=== PATIENT | male | born 1995 | race Caucasian/White ===

== ENCOUNTER 2018-07-08 19:17 | Emergency (ER) | payer OTHER ==
[2018-07-08 19:26] VITALS: BP 133/67; PULSE 91
--- NOTE | 2018-07-08 19:33 | ED ---
Chest Pain HPI - General Chief Complaint: Chest Pain Stated Complaint: chest pain Time Seen by Provider: 07/08/18 19:33 Source: patient, RN notes reviewed, old records reviewed Mode of arrival: ambulatory Limitations: no limitations - History of Present Illness Initial Comments: This is a 23-year-old male the ER for evaluation chest pain. Patient is anterior chest pain, substernal type chest pain worse when he touches his chest. Patient has no history of similar complaint. Occasional drinker occasional spoke otherwise takes no medications has no medical history. No recent travel history no sick contacts. Patient states occasionally he'll he did take a deep breath but does not cause pain maybe worse. He is no significant short of breath he has no exertional dyspnea. No recent fever cough or congestion, no known sick contacts patient has no history of high blood pressure cholesterol diabetes, family does have history of heart disease but no sudden MD Complaint: chest pain -: hour(s) Onset: during rest Pain Location: substernal Pain Radiation: none Severity: mild Severity scale (1-10): 3 (Took Motrin with significant improvement) Quality: dull Consistency: constant Improves With: nitroglycerin Worsens With: nothing Context: other (None) Anginal Symptoms: other (None) Treatments Prior to Arrival: other (Motrin did help) - Related Data Home Medications Medication Instructions Recorded Confirmed Ibuprofen [Motrin Ib] 800 mg PO TID PRN 07/08/18 07/08/18 Pseudoephedrine HCl [Sudafed] 30 mg PO Q4HR PRN 07/08/18 07/08/18 Allergies Allergy/AdvReac Type Severity Reaction Status Date / Time naproxen Allergy Swelling Verified 07/08/18 19:52 Review of Systems ROS Statement: Those systems with pertinent positive or pertinent negative responses have been documented in the HPI. ROS Other: All systems not noted in ROS Statement are negative. EKG Findings - EKG Comments: EKG Findings:: EKG shows sinus rhythm rate of 77, IL 154, QRS 80, QTC 423 Past Medical History Past Medical History: No Reported History History of Any Multi-Drug Resistant Organisms: None Reported Past Surgical History: Orthopedic Surgery Past Psychological History: No Psychological Hx Reported Smoking Status: Current some day smoker Past Alcohol Use History: Rare Past Drug Use History: None Reported General Exam - General Exam Comments Initial Comments: No abdominal tenderness, mild tenderness to anterior palpation of his sternum Limitations: no limitations General appearance: alert, in no apparent distress Head exam: Present: atraumatic, normocephalic, normal inspection Eye exam: Present: normal appearance, PERRL, EOMI. Absent: scleral icterus, conjunctival injection, periorbital swelling ENT exam: Present: normal exam, mucous membranes moist Neck exam: Present: normal inspection. Absent: tenderness, meningismus, lymphadenopathy Respiratory exam: Present: normal lung sounds bilaterally. Absent: respiratory distress, wheezes, rales, rhonchi, stridor Cardiovascular Exam: Present: regular rate, normal rhythm, normal heart sounds. Absent: systolic murmur, diastolic murmur, rubs, gallop, clicks GI/Abdominal exam: Present: soft, normal bowel sounds. Absent: distended, tenderness, guarding, rebound, rigid Extremities exam: Present: normal inspection, full ROM, normal capillary refill. Absent: tenderness, pedal edema, joint swelling, calf tenderness Back exam: Present: normal inspection Neurological exam: Present: alert, oriented X3, CN II-XII intact Psychiatric exam: Present: normal affect, normal mood Skin exam: Present: warm, dry, intact, normal color. Absent: rash Course Vital Signs 07/08/18 19:23 Temperature 98.4 F Pulse Rate 91 Respiratory 16 Rate Blood Pressure 133/67 O2 Sat by Pulse 100 Oximetry - Reevaluation(s) Reevaluation #1: 07/08/18 19:45 Medical record reviewed, noncontributory Disposition Clinical Impression: Chest pain Disposition: HOME SELF-CARE Condition: Good Instructions: Chest Pain (ED) Is patient prescribed a controlled substance at d/c from ED?: No Referrals: None,Stated [Primary Care Provider] - 1-2 days
--- NOTE | 2018-07-08 20:13 | XR ---
EXAMINATION TYPE: XR chest 2V DATE OF EXAM: 07/08/2018 COMPARISON: 09/12/2011 HISTORY: Chest pain TECHNIQUE: Frontal and lateral views of the chest are obtained. FINDINGS: Heart and mediastinum are normal. Lungs are clear. Diaphragm is normal. Bony thorax appear s normal. IMPRESSION: Normal chest. No change.
[2018-07-08 20:49] VITALS: RESP 16; TEMP 97.9
== END 2018-07-08 20:30 | disposition home or self-care (01) ==
LOC: EC 19:17
DX: R07.2 Precordial pain (principal); F17.200 Nicotine dependence, unspecified, uncomplicated; Z88.6 Allergy status to analgesic agent
CPT/HCPCS: 71046; 99285

== ENCOUNTER 2019-01-02 21:59 | Emergency (ER) | payer OTHER ==
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
--- NOTE | 2019-01-02 23:17 | XR ---
EXAM: XR Lumbar Spine, 2 or 3 Views CLINICAL HISTORY: Pain TECHNIQUE: Frontal and lateral views of the lumbar spine. COMPARISON: No relevant prior studies available. FINDINGS: Vertebrae: Unremarkable. No acute fracture. Normal alignment. Disc spaces: No acute findings. No significant narrowing. Soft tissues: Unremarkable. IMPRESSION: Normal lumbar spine x-rays.
--- NOTE | 2019-01-02 23:18 | XR ---
EXAM: XR Pelvis, 1 or 2 Views CLINICAL HISTORY: Pain TECHNIQUE: Frontal view of the pelvis. COMPARISON: No relevant prior studies available. FINDINGS: Bones/joints: Unremarkable. No acute fracture. No dislocation. Soft tissues: Unremarkable. IMPRESSION: Normal pelvis x-ray.
[2019-01-03 00:04] VITALS: BP 140/88; PULSE 78; RESP 12; TEMP 97.7
== END 2019-01-02 23:58 | disposition home or self-care (01) ==
LOC: EC 21:59
DX: S39.012A Strain of muscle, fascia and tendon of lower back, initial encounter (principal); F17.200 Nicotine dependence, unspecified, uncomplicated; Z88.6 Allergy status to analgesic agent; V89.2XXA Person injured in unspecified motor-vehicle accident, traffic, initial encounter; Y92.410 Unspecified street and highway as the place of occurrence of the external cause
CPT/HCPCS: 72100; 72170; 99284

== ENCOUNTER → 2020-09-16 | Outpatient (CLI) | payer OTHER ==
--- NOTE | 2020-09-16 18:46 | CT ---
EXAMINATION TYPE: CT abdomen pelvis w con DATE OF EXAM: 09/16/2020 COMPARISON: 05/22/2010 HISTORY: RLQ pain CT DLP: 1591 mGycm Automated exposure control for dose reduction was used. CONTRAST: Performed with IV Contrast, patient injected with 100 mL of Isovue 300. Images obtained from the diaphragm to the floor the pelvis with oral and IV contrast. Lung bases are clear. There is no pleural effusion. Heart size is normal. There is no pericardial eff usion. Liver spleen stomach pancreas gallbladder appear normal. Bile ducts are not dilated. There is no adrenal mass. The kidneys show satisfactory contrast opacification. There is no hydroneph rosis. Delayed images show normal renal excretion. Ureters are not dilated. There is no retroperitone al adenopathy. Appendix appears normal. Bladder distends smoothly. There is no inguinal hernia. There is no free fluid in the pelvis. There is no evidence of pelvic mass. There is no mesenteric edema. There is no ascites or free air. There is no sign of a bowel obstructio n. There is 1 cm umbilical hernia that contains fat. Small bowel pattern is normal. I see no intestin al wall thickening. Lumbar vertebra have normal alignment. There is no compression fracture. Bony pelvis is intact. Hip j oints are intact. IMPRESSION: Negative CT scan abdomen and pelvis. Normal appendix. There is clearing of the tiny amount of fluid i n the pelvis compared to old exam.
== END | disposition home or self-care (01) ==
LOC: RADCTMAIN 15:34
PROVIDERS: ATTEND Nurse Practitioner Family
DX: R10.31 Right lower quadrant pain (principal)
CPT/HCPCS: 74177; Q9967

== ENCOUNTER 2020-10-10 20:25 | Emergency (ER) | payer OTHER ==
[2020-10-10 20:30] VITALS: TEMP 98.4
[2020-10-10] MEDS ORDERED: SODIUM CHLORIDE 0.9% 1,000 ML IV STA (21:07)
--- NOTE | 2020-10-10 21:16 | ED ---
Abdominal Pain HPI - General Chief Complaint: Abdominal Pain Stated Complaint: Abd Pain Time Seen by Provider: 10/10/20 20:34 Source: patient, RN notes reviewed Mode of arrival: ambulatory Limitations: no limitations - History of Present Illness Initial Comments: 25-year-old male patient presents to the emergency room complaints of approximately one month of abdominal pain. Patient states was seen here and diagnosed on September 16 with a small umbilical hernia. Patient states he went to [facility] in [place] and developed worsening pain, had another CAT scan there was told he had an abdominal strain on October 02. Patient states he has a appointment with on October 20 for follow-up but states the pain is worse and not relieved with Tylenol. Patient denies any nausea vomiting or diarrhea, denies any fevers, denies any chest pain or cough.. States he just started seeing Dr. Julien and was prescribed sertraline for anxiety, depression September 17. Patient states does not want a third CAT scan to show the same thing he just needs something for the pain. Patient states pain 10 out of 10, worse with movement. MD Complaint: abdominal pain -: month(s) Location: periumbilical, RUQ, RLQ Radiation: none Severity scale (1-10): 10 Improves With: nothing Worsens With: movement Context: other (dx with small umbilical hernia 09/16, abdominal strain 10/02) Associated Symptoms: denies other symptoms - Related Data Home Medications Medication Instructions Recorded Confirmed No Known Home Medications 01/02/19 01/02/19 Allergies Allergy/AdvReac Type Severity Reaction Status Date / Time naproxen Allergy Swelling Verified 10/10/20 20:31 NSAIDS (Non-Steroidal AdvReac Unknown Verified 10/10/20 20:31 Anti-Inflamma Review of Systems ROS Statement: Those systems with pertinent positive or pertinent negative responses have been documented in the HPI. ROS Other: All systems not noted in ROS Statement are negative. Past Medical History Past Medical History: No Reported History History of Any Multi-Drug Resistant Organisms: None Reported Past Surgical History: Orthopedic Surgery Past Psychological History: No Psychological Hx Reported Smoking Status: Current every day smoker Past Alcohol Use History: Rare Past Drug Use History: None Reported General Exam Limitations: no limitations General appearance: alert, in no apparent distress Head exam: Present: atraumatic, normocephalic, normal inspection Eye exam: Present: normal appearance, PERRL, EOMI. Absent: scleral icterus, conjunctival injection, periorbital swelling ENT exam: Present: normal exam, mucous membranes moist Neck exam: Present: normal inspection, full ROM. Absent: tenderness, meningismus, lymphadenopathy, thyromegaly Respiratory exam: Present: normal lung sounds bilaterally. Absent: respiratory distress, wheezes, rales, rhonchi, stridor, chest wall tenderness, accessory muscle use, decreased breath sounds Cardiovascular Exam: Present: tachycardia, normal heart sounds. Absent: JVD GI/Abdominal exam: Present: soft, tenderness (RUQ, RLQ and periumbilical). A bsent: distended Extremities exam: Present: normal inspection, full ROM, normal capillary refill. Absent: tenderness, pedal edema, joint swelling, calf tenderness Back exam: Present: normal inspection, full ROM. Absent: tenderness, CVA tenderness (R), CVA tenderness (L) Neurological exam: Present: alert, oriented X3 Psychiatric exam: Present: anxious Skin exam: Present: warm, dry, intact, normal color. Absent: rash, cyanosis, diaphoretic, erythema, petechiae, pallor, mottled Course Vital Signs 10/10/20 10/10/20 20:28 21:12 Temperature 98.4 F Pulse Rate 108 H 80 Respiratory 20 18 Rate Blood Pressure 155/98 160/98 O2 Sat by Pulse 97 98 Oximetry Medical Decision Making - Medical Decision Making CBC WNL, WBC count 5.5, compared to WBC of 4.2 on 09/16. CRP 0.9. Patient afebrile with temperature of 98.4, heart rate 75, oxygen saturation 97%. Patient did not want another CT scan in the ER today. Patient willing to be discharged home and follow up with surgery as already scheduled October 20. States she will take Tylenol at home but is requesting a couple of days off from work to rest. Patient well-appearing will discharge home. Case discussed with Dr. Cruz who was agreeable to this plan. Patient directed to return if worsening pain or fevers. - Lab Data Result diagrams: 10/10/20 21:12 10/10/20 21:12 Lab Results 10/10/20 10/10/20 10/10/20 Range/Units 21:12 21:12 21:12 WBC 5.5 (3.8-10.6) k/uL RBC 5.06 (4.30-5.90) m/uL Hgb 16.0 (13.0-17.5) gm/dL Hct 45.8 (39.0-53.0) % MCV 90.6 (80.0-100.0) fL MCH 31.6 (25.0-35.0) pg MCHC 34.9 (31.0-37.0) g/dL RDW 13.4 (11.5-15.5) % Plt Count 174 (150-450) k/uL MPV 8.6 Neutrophils % 58 % Lymphocytes % 29 % Monocytes % 8 % Eosinophils % 4 % Basophils % 1 % Neutrophils # 3.2 (1.3-7.7) k/uL Lymphocytes # 1.6 (1.0-4.8) k/uL Monocytes # 0.4 (0-1.0) k/uL Eosinophils # 0.2 (0-0.7) k/uL Basophils # 0.0 (0-0.2) k/uL Sodium 138 (137-145) mmol/L Potassium 4.0 (3.5-5.1) mmol/L Chloride 104 (98-107) mmol/L Carbon Dioxide 25 (22-30) mmol/L Anion Gap 9 mmol/L BUN 16 (9-20) mg/dL Creatinine 1.00 (0.66-1.25) mg/dL Est GFR (CKD-EPI)AfAm >90 (>60 ml/min/1.73 sqM) Est GFR (CKD-EPI)NonAf >90 (>60 ml/min/1.73 sqM) Glucose 107 H (74-99) mg/dL Calcium 9.8 (8.4-10.2) mg/dL Total Bilirubin 0.6 (0.2-1.3) mg/dL AST 31 (17-59) U/L ALT 50 H (4-49) U/L Alkaline Phosphatase 92 (38-126) U/L C-Reactive Protein 0.9 (<1.0) mg/dL Total Protein 7.0 (6.3-8.2) g/dL Albumin 4.5 (3.5-5.0) g/dL Amylase 72 (30-110) U/L Lipase 246 (23-300) U/L Urine Color Yellow Urine Appearance Clear (Clear) Urine pH 6.0 (5.0-8.0) Ur Specific [place] 1.034 (1.001-1.035) Urine Protein Trace H (Negative) Urine Glucose (UA) Negative (Negative) Urine Ketones Negative (Negative) Urine Blood Negative (Negative) Urine Nitrite Negative (Negative) Urine Bilirubin Negative (Negative) Urine Urobilinogen 2.0 (<2.0) mg/dL Ur Leukocyte Esterase Negative (Negative) Disposition Clinical Impression: Abdominal pain, Abdominal muscle strain Disposition: HOME SELF-CARE Condition: Good Instructions (If sedation given, give patient instructions): Abdominal Pain (ED), Muscle Strain (ED) Is patient prescribed a controlled substance at d/c from ED?: No Referrals: Jeramie Julien MD [Primary Care Provider] - 1-2 days Time of Disposition: 22:06
[2020-10-10] MEDS ORDERED: ACETAMINOPHEN TAB 325 MG TAB PO STA (21:17)
[2020-10-10 21:18] VITALS: RESP 18
[2020-10-10 21:23] LABS: Basophils % (A) 1 %; Eosinophils # (A) 0.2 k/uL (0-0.7); Eosinophils % (A) 4 %; HCT 45.8 % (39.0-53.0); Lymphocytes # (A) 1.6 k/uL (1.0-4.8); Lymphocytes % (A) 29 %; MCH 31.6 pg (25.0-35.0); MCHC 34.9 g/dL (31.0-37.0); MCV 90.6 fL (80.0-100.0); Mean Platelet Volume 8.6; Monocytes # (A) 0.4 k/uL (0-1.0); Monocytes % (A) 8 %; Neutrophils # (A) 3.2 k/uL (1.3-7.7); Neutrophils % (A) 58 %; Platelet Count 174 k/uL (150-450); RBC 5.06 m/uL (4.30-5.90); RDW 13.4 % (11.5-15.5); WBC 5.5 k/uL (3.8-10.6)
[2020-10-10 21:24] LABS: Appearance,Urine Clear (Clear); Bilirubin,Urine Negative (Negative); Blood,Urine Negative (Negative); Color,Urine Yellow; Glucose,Urine (UA) Negative (Negative); Ketones,Urine Negative (Negative); Leukocyte Esterase,Urine Negative (Negative); Nitrite,Urine Negative (Negative); Protein,Urine Trace (Negative); Specific Gravity,Urine 1.034 (1.001-1.035)
[2020-10-10 21:50] LABS: ALT 50 U/L (4-49); AST 31 U/L (17-59); African American GFR (CKD) >90 (>60 ml/min/1.73 sqM); Albumin 4.5 g/dL (3.5-5.0); Alkaline Phosphatase 92 U/L (38-126); Amylase 72 U/L (30-110); Anion Gap 9 mmol/L; Blood Urea Nitrogen 16 mg/dL (9-20); C Reactive Protein 0.9 mg/dL (<1.0); Calcium 9.8 mg/dL (8.4-10.2); Carbon Dioxide 25 mmol/L (22-30); Chloride 104 mmol/L (98-107); Glucose 107 mg/dL (74-99); Lipase 246 U/L (23-300); Non-African American GFR(CKD) >90 (>60 ml/min/1.73 sqM); Sodium 138 mmol/L (137-145); Total Bilirubin 0.6 mg/dL (0.2-1.3)
[2020-10-10 22:05] VITALS: BP 142/85; PULSE 75
== END 2020-10-10 22:14 | disposition home or self-care (01) ==
LOC: EC 20:25
DX: S39.011A Strain of muscle, fascia and tendon of abdomen, initial encounter (principal); F17.200 Nicotine dependence, unspecified, uncomplicated; X58.XXXA Exposure to other specified factors, initial encounter
CPT/HCPCS: 36415; 80053; 81003; 82150; 83690; 85025; 86140; 96360; 99284

== ENCOUNTER 2020-11-03 06:55 | Observation (INO) | payer OTHER ==
[2020-11-02 10:04] VITALS: BMI 31.7
[~2020-11-03 06:55] MED LIST: ACETAMINOPHEN TAB 500 MG TAB PO PRN; DEXAMETHASONE SOD PHOSPHATE 4 MG/ML 1 ML VIAL IV ONE; HEPARIN SODIUM,PORCINE/PF 5,000 UNIT/0.5 ML SYRINGE SQ PRN
[2020-11-03] MEDS ORDERED: ONDANSETRON 4 MG/2 ML VIAL IVP PRN ×2 (07:00→14:37)
[2020-11-03] MEDS: LACTATED RINGERS 1,000 ML IV SCH ×2 (07:37→20:38)
[2020-11-03] MEDS ORDERED: MIDAZOLAM 2 MG/2 ML VIAL IVP ONE ×5 (08:01→08:50)
--- NOTE | 2020-11-03 08:55 | P.GSHP ---
History of Present Illness H&P Date: 11/03/20 Chief Complaint: Umbilical hernia This a 25-year-old male who presents today for laparoscopic robotic system repair of umbilical hernia. Past Medical History Past Medical History: No Reported History Additional Past Medical History / Comment(s): abdominal hernia History of Any Multi-Drug Resistant Organisms: None Reported Past Surgical History: Orthopedic Surgery Additional Past Surgical History / Comment(s): ORIF left foot-hardware later removed Additional Past Anesthesia/Blood Transfusion Reaction / Comment(s): woke up in the middle of the foot surgery, no hx blood transfusion Smoking Status: Vaper - Past Family History Mother Family Medical History: No Reported History Medications and Allergies Home Medications Medication Instructions Recorded Confirmed Type Ibuprofen [Ibuprofen Jr. Strength] 150 mg PO Q6H PRN 11/02/20 11/02/20 History Sertraline [Zoloft] 100 mg PO QAM 11/02/20 11/03/20 History Allergies Allergy/AdvReac Type Severity Reaction Status Date / Time naproxen Allergy generalized Verified 11/03/20 07:28 Swelling "up like a ballon" Surgical - Exam Vital Signs Temp Pulse Resp BP Pulse Ox 97.8 F 74 17 146/87 96 11/03/20 07:30 11/03/20 07:30 11/03/20 07:30 11/03/20 07:30 11/03/20 07:30 - General well developed, well nourished, no distress - Eyes PERRL - ENT normal pinna - Neck no masses - Respiratory normal expansion - Cardiovascular Rhythm: regular - Abdomen Abdomen: soft, non tender Hernia: umbilical Assessment and Plan Assessment: Umbilical hernia. We'll perform laparoscopic robotic-assisted repair.
[2020-11-03] MEDS ORDERED: SUCCINYLCHOLINE CHLORIDE 100 MG/5 ML SYR IV ONE (09:06)
[2020-11-03] MEDS ORDERED: GLYCOPYRROLATE 0.2 MG/ML 2 ML VIAL ONE (09:06)
[2020-11-03] MEDS ORDERED: KETOROLAC 15 MG/ML 1 ML VIAL ONE (09:06)
[2020-11-03] MEDS ORDERED: HYDROmorphone (PF) 1 MG/ML ONE (09:06)
[2020-11-03] MEDS ORDERED: NEOSTIGMINE 1 MG/ML 10 ML VIAL ONE (09:06)
[2020-11-03] MEDS ORDERED: ROPIVACAINE 5 MG/ML 30 ML VIAL ONE (09:06)
[2020-11-03] MEDS ORDERED: LIDOCAINE 1% INJ 10MG/ML (20 ML MDV) ONE (09:06)
[2020-11-03] MEDS ORDERED: fentaNYL (PF) 50 MCG/ML 2 ML AMP ONE (09:06)
[2020-11-03] MEDS ORDERED: MIDAZOLAM 2 MG/2 ML VIAL ONE (09:06)
[2020-11-03] MEDS ORDERED: ROCURONIUM 10 MG/ML (5 ML VIAL) IV ONE (09:06)
[2020-11-03] MEDS ORDERED: PROPOFOL 10 MG/ML 20 ML VIAL IV ONE (09:06)
[2020-11-03] MEDS ORDERED: LIDOCAINE 1%-EPI 1:100,000 20 ML VIAL ONE (09:06)
[2020-11-03] MEDS ORDERED: BUPIVACAIN-EPI 0.5%-1:200,000 30 ML VIAL SQ ONE (09:24)
[2020-11-03] MEDS ORDERED: LACTATED RINGERS 1,000 ML IV ONE ×2 (10:08→13:59)
[2020-11-03] MEDS: HYDROmorphone 0.5 MG/0.5 ML SYRINGE IVP PRN ×4 (10:16→10:33)
--- NOTE | 2020-11-03 10:26 | P.OP ---
Date of Procedure: 11/03/20 Preoperative Diagnosis: Incarcerated umbilical hernia Postoperative Diagnosis: Incarcerated umbilical hernia Procedure(s) Performed: Laparoscopic robotic-assisted repair of incarcerated umbilical hernia Partial omentectomy Anesthesia: MARY KAY Surgeon: Humberto Castro Estimated Blood Loss (ml): 5 Pathology: other (Omentum) Condition: stable Disposition: PACU Description of Procedure: The patient was placed on the operating table in the supine position. He received general anesthesia. His abdomen was prepped and draped usual fashion. Using a 5 mm optical trocar under direct visualization the peritoneal cavity was entered in the left upper quadrant. The abdomen was then insufflated. The laparoscope was placed back into the perineal cavity. Next a 8 mm robotic trocar was placed in the left lower quadrant and a 12 mm robotic trocar was placed in the left lateral position. The original 5 mm trocar was exchanged for a 8 mm robotic trocar. The patient's placed in the left side up position. And the patient was undocked the robot. The umbilical hernia was visualized. Using hook cautery the peritoneum over the umbilical hernia was excised. The incarcerated omentum was dissected free and sent to pathology The fascial opening was repaired using 0V LOC suture. Next a piece of 11 cm round ventral light ST mesh was placed into the. Cavity and secured with 2 OV lock suture. The patient was undocked the robot. The needles were retrieved. The fascia of the 12 mm trocar site was closed with 0 Ethibond suture. Skin was closed interrupted 3-0 Monocryl suture. Dermabond dressings was applied. Patient top procedure well and was sent to recovery room stable condition.
[2020-11-03] MEDS ORDERED: fentaNYL (PF) 50 MCG/ML 2 ML AMP IV ONE (10:38)
[2020-11-03] MEDS ORDERED: MIDAZOLAM 2 MG/2 ML VIAL IV ONE (11:52)
[2020-11-03] MEDS ORDERED: MEPERIDINE 50 MG/ML SYRINGE IVP ONE ×2 (12:56→13:58)
[2020-11-03] MEDS: SERTRALINE 100 MG TAB PO SCH (15:06)
[2020-11-03] MEDS ORDERED: SODIUM CHLORIDE 0.9% 1,000 ML IV ONE (15:22)
[2020-11-03] MEDS ORDERED: HYDROmorphone 1 MG/ML 1 ML SYRINGE IVP ONE (15:50)
[2020-11-03] MEDS: PANTOPRAZOLE 40 MG TABLET PO SCH (17:08)
[2020-11-03] MEDS: HYDROcodone/APAP 5-325MG 1 EACH TAB PO PRN ×2 (17:13→21:32)
[2020-11-03] MEDS: SODIUM CHLORIDE 0.9% 1,000 ML IV SCH (17:13)
[2020-11-03] MEDS: HYDROmorphone 1 MG/ML 1 ML SYRINGE IVP PRN ×2 (19:50→23:10)
[2020-11-03] MEDS: HEPARIN SODIUM,PORCINE/PF 5,000 UNIT/0.5 ML SYRINGE SQ SCH (21:32)
[2020-11-04] MEDS: SODIUM CHLORIDE 0.9% 1,000 ML IV SCH ×2 (01:36→09:23)
[2020-11-04] MEDS: HYDROcodone/APAP 5-325MG 1 EACH TAB PO PRN ×2 (01:38→06:13)
[2020-11-04] MEDS: HYDROmorphone 1 MG/ML 1 ML SYRINGE IVP PRN ×4 (02:02→23:15)
[2020-11-04] MEDS: HEPARIN SODIUM,PORCINE/PF 5,000 UNIT/0.5 ML SYRINGE SQ SCH ×2 (08:30→20:45)
[2020-11-04] MEDS: PANTOPRAZOLE 40 MG TABLET PO SCH (08:30)
[2020-11-04] MEDS: SERTRALINE 100 MG TAB PO SCH (08:47)
[2020-11-04 09:06] LABS: African American GFR (CKD) >90 (>60 ml/min/1.73 sqM); Anion Gap 5 mmol/L; Blood Urea Nitrogen 9 mg/dL (9-20); Calcium 8.7 mg/dL (8.4-10.2); Carbon Dioxide 28 mmol/L (22-30); Chloride 105 mmol/L (98-107); Glucose 129 mg/dL (74-99); Non-African American GFR(CKD) >90 (>60 ml/min/1.73 sqM); Potassium 4.2 mmol/L (3.5-5.1); Sodium 138 mmol/L (137-145)
[2020-11-04 09:36] LABS: Basophils % (A) 0 %; Eosinophils % (A) 0 %; HCT 38.5 % (39.0-53.0); HGB 13.7 gm/dL (13.0-17.5); Lymphocytes # (A) 1.5 k/uL (1.0-4.8); Lymphocytes % (A) 18 %; MCH 32.6 pg (25.0-35.0); MCHC 35.6 g/dL (31.0-37.0); MCV 91.5 fL (80.0-100.0); Mean Platelet Volume 9.4; Monocytes # (A) 0.3 k/uL (0-1.0); Monocytes % (A) 4 %; Neutrophils # (A) 6.1 k/uL (1.3-7.7); Neutrophils % (A) 77 %; Platelet Count 129 k/uL (150-450); RDW 13.2 % (11.5-15.5)
[2020-11-04] MEDS ORDERED: IBUPROFEN 600 MG TAB PO PRN (11:16)
--- NOTE | 2020-11-04 14:00 | P.ANPRN ---
Procedure Note - Anesthesia - Nerve Block Performed Bilateral Rectus Abdominis Single Time Out Performed: Yes Date of Procedure: 11/03/20 Procedure Start Time: 08:00 Procedure Stop Time: 08:06 Location of Patient: PreOp Indication: Acute Post-Operative Pain, Requested by Surgeon Sedation Type: Sedate with meaningful contact maintained Preparation: Sterile Prep Position: Supine Needle Types: Pajunk Needle Gauge: 21 Ultrasound used to visualize needle placement: Yes Ultrasound used to observe medication spread: Yes Blood Aspirated: No Pain Paresthesia on Injection Noted: No Resistance on Injection: Normal Image Stored and Saved: Yes Events: Uneventful and Well Tolerated (Ropivacaine 0.5% 20 mL with dexamethasone 4 mg bilaterally)
--- NOTE | 2020-11-04 15:08 | P.PN ---
Subjective Progress Note Date: 11/04/20 CHIEF COMPLAINT: Incarcerated umbilical hernia HISTORY OF PRESENT ILLNESS: Patient is status post laparoscopic robotic-assisted repair of incarcerated umbilical hernia and partial omentectomy. Patient is postop day #1. He is having uncontrolled abdominal pain. Patient has not been able to pass gas. He has been up and ambulating. He is still requiring the IV Dilaudid. Oral pain medications have also been added. He denies any nausea or vomiting. He is on a regular diet. Afebrile. WBC is 8.0 PHYSICAL EXAM: VITAL SIGNS: Reviewed. GENERAL: Well-developed in no acute distress. HEENT: No sclera icterus. Extraocular movements grossly intact. Moist buccal mucosa. Head is atraumatic, normocephalic. ABDOMEN: Soft. Nondistended. Diffuse tenderness. Incisions clean dry and intact NEUROLOGIC: Alert and oriented. Cranial nerves II through XII grossly intact. ASSESSMENT: 1. Incarcerated umbilical hernia status post laparoscopic robotic-assisted repair of incarcerated umbilical hernia and partial omentectomy PLAN: -OxyIR, Motrin and Tylenol added for pain control -Continue IV Dilaudid as needed for breakthrough pain -Hep-Lock IV -Continue regular diet -Encourage patient to ambulate -GI prophylaxis Protonix and DVT prophylaxis subcu heparin Physician Data Technical Lead note has been reviewed by physician. Signing provider agrees with the documented findings, assessment, and plan of care. Objective - Vital Signs Vital signs: Vital Signs Temp 97.8 F 11/04/20 12:34 Pulse 66 11/04/20 12:34 Resp 16 11/04/20 12:34 BP 115/65 11/04/20 12:34 Pulse Ox 98 11/04/20 12:34 Intake & Output 11/03/20 11/04/20 11/04/20 18:59 06:59 18:59 Intake Total 2600 2640 Output Total 505 Balance 2095 2640 Weight 106 kg Intake: IV 2400 Intake, IV Titration 200 1200 Amount Sodium Chloride 0.9% 1, 200 1200 000 ml @ 100 mls/hr IV . Q10H OFELIA Rx#:[id number] Oral 1440 Output: Urine 500 Estimated Blood Loss 5 Other: Voiding Method Toilet Toilet # Voids 1 3 - Labs CBC & Chem 7: 11/04/20 08:40 11/04/20 08:40 Labs: Abnormal Lab Results - Last 24 Hours (Table) 11/04/20 11/04/20 Range/Units 08:40 08:40 RBC 4.20 L (4.30-5.90) m/uL Hct 38.5 L (39.0-53.0) % Plt Count 129 L (150-450) k/uL Glucose 129 H (74-99) mg/dL
[2020-11-04] MEDS: LACTATED RINGERS 1,000 ML IV SCH (20:45)
[2020-11-05] MEDS: ACETAMINOPHEN TAB 325 MG TAB PO PRN ×2 (00:23→14:36)
[2020-11-05] MEDS: HYDROmorphone 1 MG/ML 1 ML SYRINGE IVP PRN ×3 (01:59→09:08)
[2020-11-05] MEDS: PANTOPRAZOLE 40 MG TABLET PO SCH (07:33)
[2020-11-05] MEDS: SERTRALINE 100 MG TAB PO SCH (07:33)
[2020-11-05] MEDS: HEPARIN SODIUM,PORCINE/PF 5,000 UNIT/0.5 ML SYRINGE SQ SCH (07:34)
[2020-11-05] MEDS ORDERED: DOCUSATE 100 MG CAP PO SCH (10:15)
[2020-11-05] MEDS ORDERED: SERTRALINE 100 MG TAB PO SCH (10:45)
[2020-11-05] MEDS ORDERED: HYDROcodone/APAP 7.5-325MG 1 EACH TAB PO PRN (11:38)
[2020-11-05 11:58] VITALS: BP 125/73; PULSE 78; RESP 14; TEMP 98
--- NOTE | 2020-11-05 14:16 | P.DS ---
Providers Date of admission: 11/03/20 23:31 Expected date of discharge: 11/05/20 Attending physician: Humberto Castro Primary care physician: Jeramie Julien Hospital Course: Discharge diagnosis 1. Incarcerated umbilical hernia status post laparoscopic robotic-assisted repair of incarcerated umbilical hernia and partial omentectomy Hospital course This is a 25-year-old male with an incarcerated umbilical hernia. He is status post laparoscopic robotic-assisted repair of incarcerated umbilical hernia and partial omentectomy. Patient's pain is better controlled today. He is now passing gas. And feels ready for discharge. He has been up and ambulating. He is tolerating diet. He is afebrile. He is stable for discharge. Please refer to chart for any further details. Physician Electrode Cleaner note has been reviewed by physician. Signing provider agrees with the documented findings, assessment, and plan of care. Patient Condition at Discharge: Stable Plan - Discharge Summary Discharge Rx Participant: No New Discharge Prescriptions: New Ibuprofen [Motrin] 600 mg PO Q6HR PRN #40 tab PRN Reason: Pain Acetaminophen Tab [Tylenol] 650 mg PO Q6H #30 tab Docusate [Colace] 100 mg PO BID #20 capsule oxyCODONE HCL [OxyIR] 5 mg PO Q6H PRN 3 Days #10 tab PRN Reason: Pain Continue Sertraline [Zoloft] 100 mg PO QAM Discontinued Ibuprofen [Ibuprofen Jr. Strength] 150 mg PO Q6H PRN PRN Reason: Pain Discharge Medication List Sertraline [Zoloft] 100 mg PO QAM 11/02/20 [History] Acetaminophen Tab [Tylenol] 650 mg PO Q6H #30 tab 11/03/20 [Rx] Docusate [Colace] 100 mg PO BID #20 capsule 11/03/20 [Rx] Ibuprofen [Motrin] 600 mg PO Q6HR PRN #40 tab 11/03/20 [Rx] oxyCODONE HCL [OxyIR] 5 mg PO Q6H PRN 3 Days #10 tab 11/03/20 [Rx] Follow up Appointment(s)/Referral(s): Humberto Castro MD [STAFF PHYSICIAN] - 11/10/20 4:00 pm Patient Instructions/Handouts: *Surgery [facility] - (Anesthesia) Discharge Instructions Outpatient Surgery, Laparoscopic Herniorrhaphy (DC) Activity/Diet/Wound Care/Special Instructions: KEEP BINDER ON ALL TIMES EXCEPT SHOWERING. OK TO shower NO TUB BATH,POOL UNTIL HEALED. NO HEAVY LIFTING leave tape strip alone Discharge Disposition: HOME SELF-CARE
--- NOTE | 2020-11-05 14:40 | P.CONS ---
History of Present Illness - Reason for Consult Perioperative complication management - History of Present Illness 25-year-old male was admitted for repair of incarcerated a medical hernia and partial omentectomy. Pacer patient is postoperative day 1 the patient's abdomen is distended just started passing gas and patient probably received quite a bit of opiates because of which patient is a bit constipated leading to abdominal pain and holding off on opiates for now patient is being started on nonsteroidal anti-inflammatory medications. He pain is better controlled probably can be discharged later today. Review of Systems REVIEW OF SYSTEMS: CONSTITUTIONAL: No fever, no malaise, no fatigue. HEENT: No recent visual problems or hearing problems. Denied any sore throat. CARDIOVASCULAR: No chest pain, orthopnea, PND, no palpitations, no syncope. PULMONARY: No shortness of breath, no cough, no hemoptysis. GASTROINTESTINAL: Abdominal pain as mentioned above NEUROLOGICAL: No headaches, no weakness, no numbness. HEMATOLOGICAL: Denies any bleeding or petechiae. GENITOURINARY: Denies any burning micturition, frequency, or urgency. MUSCULOSKELETAL/RHEUMATOLOGICAL: Denies any joint pain, swelling, or any muscle pain. ENDOCRINE: Denies any polyuria or polydipsia. The rest of the 14-point review of systems is negative. Past Medical History Past Medical History: No Reported History Additional Past Medical History / Comment(s): abdominal hernia History of Any Multi-Drug Resistant Organisms: None Reported Past Surgical History: Orthopedic Surgery Additional Past Surgical History / Comment(s): ORIF left foot-hardware later removed Additional Past Anesthesia/Blood Transfusion Reaction / Comm: woke up in the middle of the foot surgery, no hx blood transfusion Smoking Status: Vaper - Past Family History Mother Family Medical History: No Reported History Medications and Allergies Home Medications Medication Instructions Recorded Confirmed Type Sertraline [Zoloft] 100 mg PO QAM 11/02/20 11/03/20 History Acetaminophen Tab [Tylenol] 650 mg PO Q6H #30 tab 11/03/20 Rx Docusate [Colace] 100 mg PO BID #20 capsule 11/03/20 Rx Ibuprofen [Motrin] 600 mg PO Q6HR PRN #40 tab 11/03/20 Rx oxyCODONE HCL [OxyIR] 5 mg PO Q6H PRN 3 Days #10 tab 11/03/20 Rx Allergies Allergy/AdvReac Type Severity Reaction Status Date / Time naproxen Allergy generalized Verified 11/03/20 07:28 Swelling "up like a ballon" Physical Exam Vitals: Vital Signs Temp Pulse Resp BP Pulse Ox 11/05/20 11:39 98.0 F 78 14 125/73 99 11/05/20 04:27 97.9 F 68 16 123/81 99 11/04/20 20:20 98.0 F 67 16 104/65 99 Intake and Output 11/04/20 11/05/20 11/05/20 22:59 06:59 14:59 Intake Total 1280 960 Output Total 1800 Balance 1280 -840 Intake: Intake, IV Titration 800 Amount Sodium Chloride 0.9% 1, 800 000 ml @ 100 mls/hr IV . Q10H OFELIA Rx#:[id number] Oral 480 960 Output: Urine 1800 Other: Voiding Method Toilet # Voids 1 PHYSICAL EXAMINATION: GENERAL: The patient is alert and oriented x3, not in any acute distress. Well developed, well nourished. HEENT: Pupils are round and equally reacting to light. EOMI. No scleral icterus. No conjunctival pallor. Normocephalic, atraumatic. No pharyngeal erythema. No thyromegaly. CARDIOVASCULAR: S1 and S2 present. No murmurs, rubs, or gallops. PULMONARY: Chest is clear to auscultation, no wheezing or crackles. ABDOMEN: Distended and tympanic normoactive bowel sounds. No palpable organom egaly. MUSCULOSKELETAL: No joint swelling or deformity. EXTREMITIES: No cyanosis, clubbing, or pedal edema. NEUROLOGICAL: Gross neurological examination did not reveal any focal deficits. SKIN: No rashes. Results CBC & Chem 7: 11/04/20 08:40 11/04/20 08:40 Assessment and Plan Plan: -Incarcerated him little hernia status post laparoscopic surgery off on medical hernia with partial omentectomy: Surgical site areas are clean no evidence of infection at this time -Pain management: Patient abdominal distention is secondary to opiates which will be held temporarily and will be started on nonsteroidal anti-inflammatory recent patient does well patient probably can be discharged later today and the patient is being resumed on the right as well. -Based he -History of anxiety disorder/PTSD
== END 2020-11-05 15:20 | disposition home or self-care (01) ==
LOC: OR 06:55 → 5NMEDONC 15:01 → OR 23:31
PROVIDERS: ADMIT Surgery; ATTEND Surgery
DX: K42.0 Umbilical hernia with obstruction, without gangrene (principal); F32.9 Major depressive disorder, single episode, unspecified; K59.00 Constipation, unspecified; R14.0 Abdominal distension (gaseous); T40.2X5A Adverse effect of other opioids, initial encounter; F17.210 Nicotine dependence, cigarettes, uncomplicated; Z20.822 Contact with and (suspected) exposure to COVID-19; Z98.890 Other specified postprocedural states; Z79.899 Other long term (current) drug therapy; Z88.6 Allergy status to analgesic agent
CPT/HCPCS: 49653; S2900; 64999; 80048; 85025; 87635; 88302; 88305

== ENCOUNTER → 2021-01-27 | Outpatient (CLI) | payer OTHER ==
--- NOTE | 2021-01-27 16:15 | CT ---
EXAMINATION TYPE: CT abdomen pelvis w con DATE OF EXAM: 01/27/2021 COMPARISON: CT 09/16/2020 HISTORY: abdominal pain post hernia repair CT DLP: 1595.1 mGycm Automated exposure control for dose reduction was used. TECHNIQUE: Helical acquisition of images from the lung bases through the pelvis have been completed. CONTRAST: Performed with Oral Contrast and with IV Contrast, patient injected with 100 mL of Isovue 300. FINDINGS: There is no evident groin adenopathy or abnormal fluid collection, no evident recurrent her alana. LUNG BASES: No significant abnormality is appreciated. AORTA: No significant abnormality is appreciated. LIVER/GB: No significant abnormality is appreciated. PANCREAS: No significant abnormality is seen. SPLEEN: No significant abnormality is seen. ADRENALS: No significant abnormality is seen. KIDNEYS: No significant abnormality is seen. REPRODUCTIVE ORGANS: No significant abnormality is seen BOWEL: No significant abnormality is seen. FREE AIR: No Free Air visible. ASCITES: None visible. PELVIC ADENOPATHY: None visualized. RETROPERITONEAL ADENOPATHY: No Retroperitoneal Adenopathy visible. URINARY BLADDER: No significant abnormality is seen. OSSEOUS STRUCTURES: No significant abnormality is seen. IMPRESSION: NO ABNORMALITY EVIDENT TO ACCOUNT FOR PATIENT'S SYMPTOMS.
== END | disposition home or self-care (01) ==
LOC: RADCTMAIN 11:33
PROVIDERS: ATTEND Nurse Practitioner Family
DX: R10.9 Unspecified abdominal pain (principal); Z98.890 Other specified postprocedural states
CPT/HCPCS: 74177; Q9967

== ENCOUNTER → 2023-10-30 | Outpatient (CLI) | payer OTHER ==
--- NOTE | 2023-11-01 12:20 | MR ---
EXAMINATION TYPE: MR knee RT wo con DATE OF EXAM: 10/30/2023 COMPARISON: Outside right knee x-ray October 24, 2023 HISTORY: Right knee pain and swelling and locking. History of prior surgery after football accident TECHNIQUE: Multiplanar, multisequence images of the knee is performed without IV contrast. FINDINGS: MEDIAL MENISCUS: Anterior and posterior horns are intact without tear. LATERAL MENISCUS: Anterior and posterior horns are intact without tear. CRUCIATE LIGAMENTS: The anterior and posterior cruciate ligaments are intact and unremarkable. COLLATERAL LIGAMENTS: The medial collateral ligament and lateral collateral ligament complex are inta ct and unremarkable. EXTENSOR MECHANISM: Visualized quadriceps and patellar tendons are intact. EFFUSION: No significant suprapatellar joint effusion. POPLITEAL CYST: No popliteal/sanches cyst. TRICOMPARTMENT SPACES: Tricompartmental joint spaces are preserved. No significant spurring is seen. CARTILAGE: Tricompartmental articular cartilage is maintained. BONE MARROW SIGNAL: No focal abnormal marrow signal is appreciated. OTHER: No additional significant abnormality is appreciated. IMPRESSION: No meniscal or ligamentous tear is seen.
== END | disposition home or self-care (01) ==
LOC: RADMRIMAIN 19:03
PROVIDERS: ATTEND Orthopaedic Surgery
DX: M25.561 Pain in right knee (principal); M25.461 Effusion, right knee; Z98.890 Other specified postprocedural states

== ENCOUNTER 2024-08-16 15:01 | Emergency (ER) | payer OTHER ==
[2024-08-16 15:08] VITALS: RESP 18; TEMP 97.8
--- NOTE | 2024-08-16 15:38 | ED ---
General Adult HPI - General Chief complaint: GI Bleed Stated complaint: Abd pain Time Seen by Provider: 08/16/24 15:11 Source: patient Mode of arrival: ambulatory Limitations: no limitations - History of Present Illness Initial comments: Dictation was produced using [employer] dictation software. please excuse any grammatical, word or spelling errors. Chief Complaint: 29-year-old male with bright red blood per rectum History of Present Illness: Patient is a 29-year-old male with no significant comorbidities presents emergency department abdominal pain and bright red blood per rectum. He has had several bouts of bright red blood consistently for the last 7 days. He also complains of right lower quadrant pain denies any abdominal history. No nausea. States that the pain is sharp to the right lower quadrant nonradiating. No history of appendectomy or any abdominal surgery. Denies any rectal pain. The ROS documented in this emergency department record has been reviewed and confirmed by me. Those systems with pertinent positive or negative responses have been documented in the HPI. All other systems are other negative and/or noncontributory. - Related Data Home Medications Medication Instructions Recorded Confirmed Sertraline HCl 150 mg PO DAILY 08/16/24 08/16/24 Allergies Allergy/AdvReac Type Severity Reaction Status Date / Time naproxen Allergy generalized Verified 08/16/24 18:16 Swelling "up like a ballon" Review of Systems ROS Statement: Those systems with pertinent positive or pertinent negative responses have been documented in the HPI. ROS Other: All systems not noted in ROS Statement are negative. Past Medical History Past Medical History: No Reported History Additional Past Medical History / Comment(s): abdominal hernia History of Any Multi-Drug Resistant Organisms: None Reported Past Surgical History: Orthopedic Surgery Additional Past Surgical History / Comment(s): ORIF left foot-hardware later removed Additional Past Anesthesia/Blood Transfusion Reaction / Comment(s): woke up in the middle of the foot surgery, no hx blood transfusion Past Psychological History: Anxiety, PTSD Smoking Status: Vaper Past Alcohol Use History: Occasional Past Drug Use History: None Reported - Past Family History Mother Family Medical History: No Reported History General Exam - General Exam Comments Initial Comments: PHYSICAL EXAM: General Impression: Alert and oriented x3, not in acute distress HEENT: Normocephalic atraumatic, extra-ocular movements intact, pupils equal and reactive to light bilaterally, mucous membranes moist. Cardiovascular: Heart regular rate and rhythm Chest: Able to complete full sentences, no retractions, no tachypnea Abdomen: abdomen soft, non-tender, non-distended, no organomegaly Musculoskeletal: Pulses present and equal in all extremities, no peripheral edema Motor: no focal deficits noted Neurological: CN II-XII grossly intact, no focal motor or sensory deficits noted Skin: Intact with no visualized rashes Psych: Normal affect and mood Limitations: no limitations Course Vital Signs 08/16/24 08/16/24 15:04 18:11 Temperature 97.8 F Pulse Rate 74 55 L Respiratory 18 18 Rate Blood Pressure 136/86 121/79 O2 Sat by Pulse 97 100 Oximetry EKG Findings - EKG Comments: EKG Findings:: My EKG interpretation: Ventricular rate 75, sinus rhythm,. 150, QRS 87, QTc 418. No FL prolongation, no QTC prolongation, no ST or T-wave changes noted. Overall, this EKG is unremarkable Medical Decision Making - Medical Decision Making Was pt. sent in by a medical professional or institution (, PA, [employer], urgent ca re, hospital, or [facility]...) When possible be specific @ -No Did you speak to anyone other than the patient for history (EMS, parent, family, police, friend...)? What history was obtained from this source @ -No Did you review nursing and triage notes (agree or disagree)? Why? @ -I reviewed and agree with nursing and triage notes Were old charts reviewed (outside hosp., previous admission, EMS record, old EKG, old radiological studies, urgent care reports/EKG's, [facility] records)? Report findings @ -No old charts were reviewed Differential Diagnosis (chest pain, altered mental status, abdominal pain women, abdominal pain men, vaginal bleeding, musculoskeletal, weakness, fever, dyspnea, syncope, headache, dizziness, GI bleed, back pain, seizure, CVA, palpatations, mental health)? @ -Differential GI Bleed: Esophageal varices, aortoenteric fistula, Amanda-Patiño, gastritis, peptic ulcer disease, diverticulosis, inflammatory bowel disease, hemorrhoids, fissure, colitis, malignancy, Meckel's diverticulum, this is not meant to be an all- inclusive list. EKG interpreted by me (3pts min.). @ -None done X-rays interpreted by me (1pt min.). @ -None done CT interpreted by me (1pt min.). @ -CT abdomen pelvis shows no acute processes U/S interpreted by me (1pt. min.). @ -None done What testing was considered but not performed or refused? (CT, X-rays, U/S, labs)? Why? @ -None What meds were considered but not given or refused? Why? @ -None Was smoking cessation discussed for >3mins.? @ -No Were there social determinants of health that impacted care today? How? (H omelessness, low income, unemployed, alcoholism, drug addiction, transportation, low edu. Level, literacy, decrease access to med. care, nursing home, rehab)? @ -No Was there de-escalation of care discussed even if they declined (Discuss DNR or withdrawal of care, Hospice)? DNR status @ -No What co-morbidities impacted this encounter? (DM, HTN, Smoking, COPD, CAD, Cancer, CVA, ARF, Chemo, Hep., AIDS, mental health diagnosis, sleep apnea, morbid obesity)? @ -None Was patient admitted / discharged? Hospital course, mention meds given and route, prescriptions, significant lab abnormalities, going to OR and other pertinent info. @ -29-year-old male presents with bright blood per rectum. Vital signs upon arrival are within acceptable limits. Patient well-appearing at the bedside. Complaining of abdominal pain as well. Laboratory evaluation obtained. Labs unremarkable. CT imaging obtained because of GI bleed abdominal pain. CT is unremarkable. Patient deferred rectal exam. Disposition options were discussed he is agreeable with discharge to follow-up with GI outpatient. Return precau tions discussed. Did you discuss the management of the patient with other professionals (professionals i.e. , PA, [employer], lab, RT, psych nurse, addiction social worker, concession cashier, teacher, naval gunfire liaison officer, case loader operator)? Give summary @ -No Was critical care preformed (if so, how long)? @ -No Undiagnosed new problem with uncertain prognosis? @ -No Drug Therapy requiring intensive monitoring for toxicity (Heparin, Nitro, Insulin, Cardizem)? @ -No Were any procedures done? @ -No Diagnosis/symptom? Acute, or Chronic, or Acute on Chronic? Uncomplicated (without systemic symptoms) or Complicated (systemic symptoms)? @ -Bright red blood per rectum Side effects of treatment? @ -No Exacerbation, Progression, or Severe Exacerbation? @ -No Poses a threat to life or bodily function? How? (Chest pain, [place], [place], pneumonia, PE, COPD, DKA, ARF, appy, cholecystitis, CVA, Diverticulitis, Homicidal, Suicidal, threat to staff... and all critical care pts) @ -No - Lab Data Result diagrams: 08/16/24 15:11 08/16/24 15:11 Lab Results 08/16/24 08/16/24 08/16/24 Range/Units 15:11 15:11 15:11 WBC 4.3 (3.8-10.6) k/uL RBC 5.07 (4.30-5.90) m/uL Hgb 15.8 (13.0-17.5) gm/dL Hct 48.3 (39.0-53.0) % MCV 95.4 (80.0-100.0) fL MCH 31.2 (25.0-35.0) pg MCHC 32.7 (31.0-37.0) g/dL RDW 12.7 (11.5-15.5) % Plt Count 201 (150-450) k/uL MPV 8.8 Neutrophils % 52 % Lymphocytes % 33 % Monocytes % 7 % Eosinophils % 5 % Basophils % 1 % Neutrophils # 2.2 (1.3-7.7) k/uL Lymphocytes # 1.4 (1.0-4.8) k/uL Monocytes # 0.3 (0-1.0) k/uL Eosinophils # 0.2 (0-0.7) k/uL Basophils # 0.0 (0-0.2) k/uL PT 10.1 (10.0-12.5) sec INR 0.9 (<1.2) APTT 22.7 (22.0-30.0) sec Sodium 139 (137-145) mmol/L Potassium 4.1 (3.5-5.1) mmol/L Chloride 104 (98-107) mmol/L Carbon Dioxide 25 (22-30) mmol/L Anion Gap 10 mmol/L BUN 14 (9-20) mg/dL Creatinine 0.81 (0.66-1.25) mg/dL Est GFR (CKD-EPI)AfAm >90 (>60 ml/min/1.73 sqM) Est GFR (CKD-EPI)NonAf >90 (>60 ml/min/1.73 sqM) Glucose 105 H (74-99) mg/dL Calcium 9.9 (8.4-10.2) mg/dL Total Bilirubin 0.4 (0.2-1.3) mg/dL AST 26 (17-59) U/L ALT 31 (4-49) U/L Alkaline Phosphatase 83 (38-126) U/L Total Protein 7.1 (6.3-8.2) g/dL Albumin 4.6 (3.5-5.0) g/dL Blood Type Blood Type Confirm Blood Type Recheck Bld Type Recheck Status Antibody Screen Spec Expiration Date 08/16/24 08/16/24 Range/Units 15:30 16:05 WBC (3.8-10.6) k/uL RBC (4.30-5.90) m/uL Hgb (13.0-17.5) gm/dL Hct (39.0-53.0) % MCV (80.0-100.0) fL MCH (25.0-35.0) pg MCHC (31.0-37.0) g/dL RDW (11.5-15.5) % Plt Count (150-450) k/uL MPV Neutrophils % % Lymphocytes % % Monocytes % % Eosinophils % % Basophils % % Neutrophils # (1.3-7.7) k/uL Lymphocytes # (1.0-4.8) k/uL Monocytes # (0-1.0) k/uL Eosinophils # (0-0.7) k/uL Basophils # (0-0.2) k/uL PT (10.0-12.5) sec INR (<1.2) APTT (22.0-30.0) sec Sodium (137-145) mmol/L Potassium (3.5-5.1) mmol/L Chloride (98-107) mmol/L Carbon Dioxide (22-30) mmol/L Anion Gap mmol/L BUN (9-20) mg/dL Creatinine (0.66-1.25) mg/dL Est GFR (CKD-EPI)AfAm (>60 ml/min/1.73 sqM) Est GFR (CKD-EPI)NonAf (>60 ml/min/1.73 sqM) Glucose (74-99) mg/dL Calcium (8.4-10.2) mg/dL Total Bilirubin (0.2-1.3) mg/dL AST (17-59) U/L ALT (4-49) U/L Alkaline Phosphatase (38-126) U/L Total Protein (6.3-8.2) g/dL Albumin (3.5-5.0) g/dL Blood Type A Positive Blood Type Confirm A Positive Blood Type Recheck No Previous Record Bld Type Recheck Status CABO Indicated Antibody Screen NEGATIVE Spec Expiration Date 08/19/20242329 Disposition Clinical Impression: BRBPR (bright red blood per rectum) Disposition: HOME SELF-CARE Condition: Fair Instructions (If sedation given, give patient instructions): Gastrointestinal Bleeding (ED) Is patient prescribed a controlled substance at d/c from ED?: No Referrals: Aura Joyner MD [STAFF PHYSICIAN] - 1-2 days Time of Disposition: 18:53
[2024-08-16] MEDS: KETOROLAC 15 MG/ML 1 ML VIAL IVP STA (15:47)
[2024-08-16 15:50] LABS: Basophils % (A) 1 %; Eosinophils # (A) 0.2 k/uL (0-0.7); Eosinophils % (A) 5 %; HCT 48.3 % (39.0-53.0); HGB 15.8 gm/dL (13.0-17.5); Lymphocytes # (A) 1.4 k/uL (1.0-4.8); Lymphocytes % (A) 33 %; MCH 31.2 pg (25.0-35.0); MCHC 32.7 g/dL (31.0-37.0); MCV 95.4 fL (80.0-100.0); Mean Platelet Volume 8.8; Monocytes # (A) 0.3 k/uL (0-1.0); Monocytes % (A) 7 %; Neutrophils # (A) 2.2 k/uL (1.3-7.7); Neutrophils % (A) 52 %; Platelet Count 201 k/uL (150-450); RBC 5.07 m/uL (4.30-5.90); RDW 12.7 % (11.5-15.5); WBC 4.3 k/uL (3.8-10.6)
[2024-08-16 16:00] LABS: INR 0.9 (<1.2); Partial Thromboplastin Time 22.7 sec (22.0-30.0); Prothrombin Time 10.1 sec (10.0-12.5)
[2024-08-16 16:05] LABS: ALT 31 U/L (4-49); AST 26 U/L (17-59); African American GFR (CKD) >90 (>60 ml/min/1.73 sqM); Albumin 4.6 g/dL (3.5-5.0); Alkaline Phosphatase 83 U/L (38-126); Anion Gap 10 mmol/L; Blood Urea Nitrogen 14 mg/dL (9-20); Calcium 9.9 mg/dL (8.4-10.2); Carbon Dioxide 25 mmol/L (22-30); Chloride 104 mmol/L (98-107); Glucose 105 mg/dL (74-99); Non-African American GFR(CKD) >90 (>60 ml/min/1.73 sqM); Potassium 4.1 mmol/L (3.5-5.1); Sodium 139 mmol/L (137-145); Total Bilirubin 0.4 mg/dL (0.2-1.3); Total Protein 7.1 g/dL (6.3-8.2)
[2024-08-16 18:11] VITALS: BP 121/79; PULSE 55
--- NOTE | 2024-08-16 18:27 | CT ---
EXAMINATION TYPE: CT abdomen pelvis w con DATE OF EXAM: 08/16/2024 6:13 PM COMPARISON: CT abdomen pelvis most recent from 01/27/2021 CLINICAL INDICATION: Male, 29 years old with history of BRBPR plus abdominal pain; Pt states for the past 7 days he has had bright red bleeding when having bowel movements. Pt is pale in triage and al so is complaining of lower abdominal pain. TECHNIQUE: Axial CT abdomen pelvis w con;Sagittal and coronal reformats were created on a separate w orkstation. Contrast used:100 ml mL of Isovue 300 with IV Contrast, (none if empty) Oral contrast used: without Oral Contrast (none if empty) CT DLP: 1581.1 mGycm, Automated exposure control for dose reduction was used. FINDINGS: LOWER CHEST: Unremarkable ABDOMEN LIVER: Unremarkable GALLBLADDER AND BILE DUCTS: Unremarkable. PANCREAS: Unremarkable. SPLEEN: Unremarkable. ADRENAL GLANDS: Unremarkable. KIDNEYS AND URETERS: No evidence of hydronephrosis or renal calculus. The ureters are unremarkable. PELVIS BLADDER: No evidence for wall thickening or mass given limitations of exam. REPRODUCTIVE: Unremarkable. ABDOMEN & PELVIS STOMACH AND BOWEL: Evaluation of the gastrointestinal tract demonstrates no evidence of high density hemorrhage arterial. No evidence of bowel obstruction. PERITONEUM/RETROPERITONEUM: No evidence of pneumoperitoneum or free fluid. VASCULATURE: No evidence of aortic aneurysm. MUSCULOSKELETAL: No acute osseous abnormalities LYMPH NODES: No gross evidence for lymphadenopathy. SOFT TISSUE/ABDOMINAL WALL: Tiny fat-containing umbilical hernia. IMPRESSION: No evidence for gastrointestinal hemorrhage. No evidence for acute process. [facility], , 08/16/2024 6:24 PM
== END 2024-08-16 18:59 | disposition home or self-care (01) ==
LOC: EC 15:01
DX: K62.5 Hemorrhage of anus and rectum (principal); F17.290 Nicotine dependence, other tobacco product, uncomplicated; Z88.8 Allergy status to other drugs, medicaments and biological substances
CPT/HCPCS: 36415; 93005; 86900; 86901; 80053; 85025; 85610; 85730; 86850; 74177; 99285; 96374; J1885; Q9967

== ENCOUNTER 2024-08-27 09:29 | Day surgery (SDC) | payer OTHER ==
[~2024-08-27 09:29] MED LIST changes: -ACETAMINOPHEN TAB 500 MG TAB PO PRN; -DEXAMETHASONE SOD PHOSPHATE 4 MG/ML 1 ML VIAL IV ONE; -HEPARIN SODIUM,PORCINE/PF 5,000 UNIT/0.5 ML SYRINGE SQ PRN; +LACTATED RINGERS 1,000 ML IV SCH; +LIDOCAINE 1% (10MG/ML) FOR IV START INTRADERMA PRN
[2024-08-27] MEDS: IV FLUID CONTINUATION 1,000 ML IV ONE (09:41)
[2024-08-27 10:07] VITALS: TEMP 97.8
[2024-08-27] MEDS ORDERED: PROPOFOL 10 MG/ML 20 ML VIAL IV ONE (10:41)
--- NOTE | 2024-08-27 10:57 | P.PCN ---
Date of Procedure: 08/27/24 Procedure(s) Performed: BRIEF HISTORY: Patient is a 29-year-old pleasant white male scheduled for an elective colonoscopy as a part of evaluation of intermittent rectal bleeding. PROCEDURE PERFORMED: Colonoscopy with snare polypectomy. PREOPERATIVE DIAGNOSIS: Intermittent rectal bleeding. IV sedation per Anesthesia. PROCEDURE: After informed consent was obtained, the patient, was brought into the endoscopy unit. IV sedation was administered by Anesthesia under continuous monitoring. Digital rectal examination was normal. Initially the Olympus CF-160 flexible video colonoscope was then inserted in the rectum, gradually advanced into the cecum without any difficulty. Careful examination was performed as the scope was gradually being withdrawn. Ileocecal valve and the appendiceal orifice were visualized and appeared normal. Prep was excellent. Mucosa of the cecum, ascending colon, transverse colon, normal. The descending colon there was a 5 mm polyp removed by cold snare polypectomy. In the sigmoid colon there was a 5 mm and 1.5 cm polyp removed by snare polypectomy. Rest of the descending colon, sigmoid colon, and rectum appeared normal. Retroflexion was performed in the rectum and n small internal hemorrhoids were seen. The patient tolerated the procedure well. IMPRESSION: 5 mm descending colon polyp status post snare polypectomy 5 mm and 1.5 cm sigmoid colon polyp status post snare polypectomy Small internal hemorrhoids RECOMMENDATIONS: Findings of this examination were discussed with the patient as well as his family. He was advised to follow with the biopsy results. If the biopsy is adenoma he can have repeat colonoscopy in 3 years..
[2024-08-27 11:24] VITALS: BP 128/83; PULSE 73; RESP 19
== END 2024-08-27 11:46 | disposition home or self-care (01) ==
LOC: ORWHC2ENDO 09:29
PROVIDERS: ATTEND Internal Medicine Gastroenterology
DX: D12.4 Benign neoplasm of descending colon (principal); D12.5 Benign neoplasm of sigmoid colon; K63.5 Polyp of colon; K64.8 Other hemorrhoids; F41.9 Anxiety disorder, unspecified; F43.10 Post-traumatic stress disorder, unspecified; F17.290 Nicotine dependence, other tobacco product, uncomplicated; Z79.899 Other long term (current) drug therapy; Z88.6 Allergy status to analgesic agent
CPT/HCPCS: 88305; 45385; J2704